=== PATIENT | female | born 1985 | race Caucasian/White ===

== ENCOUNTER 2021-11-10 11:42 | Outpatient (CLI) | payer BC ==
[2021-11-10 14:51] LABS: Hemoglobin 10.8 g/dL (12.0-15.5); Mean Corpuscular HGB CONC 32.7 g/dL (32.0-36.0); Mean Corpuscular Hemoglobin 29.4 pg (27.0-33.0); Mean Corpuscular Volume 89.9 fl (81.6-98.3); Mean Platelet Volume 9.5 fl (7.4-10.4); Platelet Count 250 10x3/uL (150-450); RBC Distribution Width 14.6 % (11.5-14.5); Red Blood Cell (RBC) Count 3.67 10x6/uL (3.90-5.03); White Blood Cell (WBC) Count 9.1 10x3/uL (3.5-10.5)
[2021-11-10 15:25] LABS: HIV (1/2) Antibody/Antigen Non-Reactive (NonReactive); HIV 1/2 INDEX 0.05 S/CO (<1.00); Hep B Surf Ag Non-Reactive S/CO (NonReactive)
[2021-11-10 15:27] LABS: HBSAg Index 0.19 S/CO (0-0.99)
[2021-11-12 10:51] LABS: Syphilis Antibody Nonreactive (Nonreactive); Syphilis Antibody Index 0.04 S/CO (<1.00 Non-Reactive)
== END 2021-11-10 11:43 | disposition home or self-care (01) ==
LOC: CSHLAB 11:42
PROVIDERS: ATTEND Obstetrics & Gynecology
DX: Z01.812 Encounter for preprocedural laboratory examination (principal); Z20.822 Contact with and (suspected) exposure to COVID-19
CPT/HCPCS: 36415; 85027; 86900; 86901; 87340; 87389; U0003; U0005

== ENCOUNTER 2021-11-14 05:29 | Inpatient (IN) | payer BC, SELFPAY ==
[2021-11-14] MEDS ORDERED: hydrALAZINE 20 MG/ML VIAL SLOW IVP PRN ×2 (05:45→12:07)
[2021-11-14] MEDS ORDERED: Famotidine/PF 20 mg/2ml Vial SLOW IVP PRN (05:45)
[2021-11-14] MEDS ORDERED: Ondansetron PF 4 MG/2 ML Vial IVP PRN ×3 (05:45→12:07)
[2021-11-14] MEDS ORDERED: Promethazine HCl 25 MG/ML VIAL IM PRN ×2 (05:45→06:48)
[2021-11-14] MEDS ORDERED: CEFAZOLIN 2 GM in Sodium Chloride 0.9% 100 ML IVPB SCH (05:45)
[2021-11-14] MEDS ORDERED: Bicitra 30 ML UDCUP PO PRN (05:45)
[2021-11-14 06:03] VITALS: BMI 42.0
[2021-11-14] MEDS: Lactated Ringer's 1,000 ML IV SCH ×3 (06:05→10:38)
[2021-11-14] MEDS ORDERED: Meperidine HCl/PF 25 MG/ML VIAL SLOW IVP PRN (06:48)
[2021-11-14] MEDS ORDERED: Moisturizing Cream (Eucerin) 113 GM JAR TOP PRN (06:48)
[2021-11-14] MEDS ORDERED: HYDROmorphone 2 MG/ML VIAL SLOW IVP PRN (06:48)
[2021-11-14] MEDS ORDERED: Naloxone HCl 0.4 mg/ml Vial IVP PRN ×2 (06:48)
[2021-11-14] MEDS ORDERED: Ketorolac Tromethamine 30 MG/ML VIAL IVP PRN (06:48)
[2021-11-14] MEDS ORDERED: Ondansetron HCl/PF 4 MG/2 ML Vial IVP PRN (06:48)
[2021-11-14] MEDS ORDERED: Naloxone HCl 0.4 mg/ml Vial IV PRN (06:48)
[2021-11-14] MEDS ORDERED: Fentanyl 100 MCG/2 ML VIAL SLOW IVP PRN (06:48)
[2021-11-14] MEDS ORDERED: diphenhydrAMINE 50 MG/ML VIAL IVP PRN (06:48)
[2021-11-14] MEDS ORDERED: Promethazine HCl 25 MG SUPP PR PRN (06:48)
[2021-11-14] MEDS ORDERED: Communication Order-Pharmacy FS SCH (07:00)
[2021-11-14] MEDS ORDERED: Ketorolac Tromethamine 30 MG/ML VIAL IVP SCH (07:00)
[2021-11-14] MEDS ORDERED: Sodium Chloride 0.9% 100 ML ONE (07:03)
[2021-11-14] MEDS ORDERED: CEFAZOLIN 2 GM VIAL ONE (07:03)
[2021-11-14] MEDS ORDERED: Ondansetron PF 4 MG/2 ML Vial ONE (07:23)
[2021-11-14] MEDS ORDERED: Morphine PF 10 MG/10 ML VIAL ONE (07:23)
[2021-11-14] MEDS ORDERED: Phenylephrine 10 MG/ML VIAL ONE (07:23)
[2021-11-14] MEDS ORDERED: Fentanyl 100 MCG/2 ML VIAL ONE (07:23)
[2021-11-14] MEDS ORDERED: Ketorolac Tromethamine 30 MG/ML VIAL ONE (07:24)
[2021-11-14] MEDS ORDERED: Oxytocin 10 UNITS/ML VIAL ONE ×2 (07:24→08:12)
[2021-11-14] MEDS ORDERED: diphenhydrAMINE 50 MG/ML VIAL ONE (09:09)
[2021-11-14] MEDS: Misoprostol 200 MCG TAB ONE (10:39)
[2021-11-14] MEDS ORDERED: Misoprostol 200 MCG TAB PR SCH (10:45)
[2021-11-14] MEDS ORDERED: Misoprostol 200 MCG TAB PR PRN (12:07)
[2021-11-14] MEDS ORDERED: Boostrix 0.5 ML (Tdap) VIAL IM ONE (12:07)
[2021-11-14] MEDS ORDERED: diphenhydrAMINE 25 MG CAP PO PRN (12:07)
[2021-11-14] MEDS ORDERED: Methylergonovine 0.2 MG/ML VIAL IM PRN (12:07)
[2021-11-14] MEDS ORDERED: Bisacodyl 10 MG SUPP PR PRN (12:07)
[2021-11-14] MEDS ORDERED: NS w/ Oxytocin 30 units 500 ML IV SCH (12:07)
[2021-11-14] MEDS ORDERED: Lanolin Ointment 7 GM TUBE TOP PRN (12:07)
[2021-11-14] MEDS: HYDROcodone/Acetaminophen 5/325 mg Tablet PO PRN (20:42)
[2021-11-15] MEDS: Ferrous Sulfate 325 MG TAB PO SCH ×3 (03:32→21:41)
[2021-11-15 05:19] LABS: Hemoglobin 10.9 g/dL (12.0-15.5); Mean Corpuscular HGB CONC 34.3 g/dL (32.0-36.0); Mean Corpuscular Volume 87.6 fl (81.6-98.3); Mean Platelet Volume 9.1 fl (7.4-10.4); Platelet Count 186 10x3/uL (150-450); RBC Distribution Width 14.9 % (11.5-14.5); Red Blood Cell (RBC) Count 3.63 10x6/uL (3.90-5.03); White Blood Cell (WBC) Count 10.2 10x3/uL (3.5-10.5)
[2021-11-15] MEDS: Ibuprofen 800 MG TAB PO SCH ×3 (07:16→21:41)
[2021-11-15] MEDS: HYDROcodone/Acetaminophen 5/325 mg Tablet PO PRN ×4 (07:17→19:45)
[2021-11-15] MEDS: Prenatal Vitamin 1 TAB PO SCH (08:14)
[2021-11-15] MEDS ORDERED: Senokot 8.6 MG TAB PO SCH (18:00)
[2021-11-15] MEDS: Simethicone Chewable 80 MG TAB PO PRN (21:41)
[2021-11-16] MEDS: HYDROcodone/Acetaminophen 5/325 mg Tablet PO PRN ×3 (00:05→17:07)
[2021-11-16] MEDS: Simethicone Chewable 80 MG TAB PO PRN ×4 (03:18→17:07)
[2021-11-16] MEDS: Ibuprofen 800 MG TAB PO SCH ×3 (05:24→21:33)
[2021-11-16] MEDS: Senokot 8.6 MG TAB PO SCH ×2 (07:37→21:33)
[2021-11-16] MEDS: Prenatal Vitamin 1 TAB PO SCH (07:37)
[2021-11-16] MEDS: Ferrous Sulfate 325 MG TAB PO SCH ×2 (08:21→23:07)
[2021-11-17] MEDS: Simethicone Chewable 80 MG TAB PO PRN ×3 (02:50→22:14)
[2021-11-17] MEDS: HYDROcodone/Acetaminophen 5/325 mg Tablet PO PRN ×2 (05:51→14:48)
[2021-11-17] MEDS: Ibuprofen 800 MG TAB PO SCH ×3 (05:52→22:13)
[2021-11-17] MEDS: Prenatal Vitamin 1 TAB PO SCH (08:59)
[2021-11-17] MEDS: Ferrous Sulfate 325 MG TAB PO SCH ×2 (08:59→22:15)
[2021-11-17] MEDS: Senokot 8.6 MG TAB PO SCH ×2 (09:03→22:14)
[2021-11-18] MEDS: Simethicone Chewable 80 MG TAB PO PRN (05:27)
[2021-11-18] MEDS: Ibuprofen 800 MG TAB PO SCH (05:28)
[2021-11-18] MEDS: HYDROcodone/Acetaminophen 5/325 mg Tablet PO PRN (05:29)
[2021-11-18 08:02] VITALS: BP 110/74; TEMP 97.9
[2021-11-18] MEDS: Prenatal Vitamin 1 TAB PO SCH (09:44)
[2021-11-18] MEDS: Senokot 8.6 MG TAB PO SCH (09:44)
[2021-11-18] MEDS: Ferrous Sulfate 325 MG TAB PO SCH (09:45)
== END 2021-11-18 12:15 | disposition home or self-care (01) | DRG 785 ==
LOC: CSHLD 05:29 → CSHPP 11:30
PROVIDERS: ADMIT Obstetrics & Gynecology; ATTEND Obstetrics & Gynecology
PROC: 10D00Z1 Extraction of Products of Conception, Low, Open Approach (ICD-10-PCS; principal; 2021-11-14)
PROC: 0UB70ZZ Excision of Bilateral Fallopian Tubes, Open Approach (ICD-10-PCS; 2021-11-14)
DX: O34.211 Maternal care for low transverse scar from previous cesarean delivery (principal); Z37.0 Single live birth; Z3A.39 39 weeks gestation of pregnancy; Z80.3 Family history of malignant neoplasm of breast; Z80.41 Family history of malignant neoplasm of ovary; O32.8XX0 Maternal care for other malpresentation of fetus, not applicable or unspecified
CPT/HCPCS: 51702; 85027; 86850; 86900; 86901; 88302; J0690; J1200; J1885; J2274; J2370; J2405; J2590; J3010; J3490; J7120; S0028